=== PATIENT | female | born 2000 | race Two or more races ===

== ENCOUNTER 2024-07-01 22:11 | Emergency (ER) | payer BC, OTHER, SELFPAY ==
[2024-07-01 22:13] VITALS: BMI 27.4
[2024-07-01 22:58] VITALS: BP 131/89; PULSE 76; RESP 18; TEMP 36.6; O2SAT 98
[2024-07-01] MEDS: DEXAMETHASONE SOD PHOS INJ 10 MG/ML VIAL PO (23:44)
--- NOTE | 2024-07-02 05:01 | EDNOTE_ITS ---
ED Allergic Reaction RME/HPI General Chief complaint: Flu Like Symptoms Stated complaint: POSS ALERGIC REACTION AFTER GETTING LASHES DONE Time Seen by Provider: 07/01/24 23:34 Arrival date/time: 07/01/24 22:11 23F with no significant PMH presents to ED with itchy rash on skin and some SOB after getting lash extensions put on. Patient took some Benadryl and symptoms mostly gone prior to arrival in ED. Limitations: no limitations Related Data Allergies Allergy/AdvReac Type Severity Reaction Status Date / Time ibuprofen Allergy Mild Anaphylaxis Verified 07/01/24 22:16 Review of Systems Review of Systems Systems Reviewed: All systems reviewed, normal except as documented Constitutional Constitutional: Reports system reviewed and no additional complaints, except as documented, Denies fever(s) and Denies headache(s) ENT Ears, Nose, Mouth, and Throat: Denies disequilibrium and Denies headache(s) Cardiovascular Cardiovascular: Reports system reviewed and no additional complaints, except as documented, Denies chest pain and Reports dyspnea Respiratory Respiratory: Reports system reviewed and no additional complaints, except as documented, Reports as per HPI, Denies cough and Reports dyspnea Gastrointestinal Gastrointestinal: Reports system reviewed and no additional complaints, except as documented, Denies abdominal pain, Denies nausea and Denies vomiting Integumentary/Breasts Skin/Breast: Reports as per HPI, Reports pruritus and Reports rash Neurologic Neurologic: Reports system reviewed and no additional complaints, except as documented, Denies confusion, Denies disequilibrium and Denies headache(s) Psychiatric Psychiatric: Denies confusion Past Medical History Social History SMOKING STATUS: Never smoker ED Exam General Limitations: Present no limitations General appearance: Present alert and in no apparent distress Head Head exam: Present atraumatic Eye Eye exam: Present normal appearance, PERRL and EOMI ENT ENT exam: Present normal exam, normal oropharynx and mucous membranes moist Neck Neck exam: Present normal inspection, full ROM and trachea midline Chest Chest inspection: Present normal inspection and symmetric chest wall rise Respiratory Respiratory exam: Present normal lung sounds bilaterally Cardiovascular Cardiovascular exam: Present regular rate, normal rhythm and normal heart sounds Abdominal Exam Abdominal exam: Present soft and normal bowel sounds Extremities Exam Extremities exam: Present normal inspection and full ROM Back Exam Back exam: Present normal inspection and full ROM Neurological Exam Neurological exam: Present alert, oriented X3 and CN II-XII intact Psychiatric Psychiatric exam: Present normal affect and normal mood Skin Skin exam: Present warm, dry, intact and normal color Course Quality Measures none Orders Category Date Time Status Dexamethasone Inj [Decadron Inj] Med 07/01/24 23:35 Discontinued 10 mg PO X1 ONE Vital Signs Vital signs: Vital Signs Temperature 97.9 F 07/01/24 22:58 Pulse Rate 76 07/01/24 22:58 Respiratory Rate 18 07/01/24 22:58 Blood Pressure 131/89 H 07/01/24 22:58 Pulse Oximetry (%) 98 07/01/24 22:58 Oxygen Delivery Method Room Air 07/01/24 22:58 O2 at 98% on RA and WNLs Allergic Reaction MDM Narrative MDM Narrative:: 23F with no significant PMH presents to ED with itchy rash on skin and some SOB after getting lash extensions put on. Patient took some Benadryl and symptoms mostly gone prior to arrival in ED. Physical exam reveals no obvious rash on skin. Clear ENT and lungs. Normal WOB. Patient is afebrile, calm, and alert. Will give single dose of steroids to help prevent reoccurence. Patient data External records reviewed:: None Clinical information provided by:: patient Social determinants that could affect healthcare access:: none Patient has the following chronic illnesses:: none How is presenting disease/condition affected by chronic disease/condition?: no chronic disease Evaluation data The following diagnostics were reviewed and interpreted by me:: other (specify) (none) Lab and/or radiology exams considered but not ordered:: not ordered Interpretation Summary: n/a Medications / Prescriptions Medications or Prescriptions considered but not ordered:: ordered Medication administrations:: Medication Administration History Discontinued Medications Dexamethasone Sodium Phosphate (Dexamethasone Sod Phos Inj 10 Mg/Ml Vial) 10 mg PO X1 ONE Stop: 07/01/24 23:36 Last Admin: 07/01/24 23:44 Dose: 10 mg Documented By: above Consultations Consultation(s) initiated? (list below): No Diagnosis Differential Diagnosis allergic reaction: anaphylaxis, allergic reaction, angioedema, contact dermatitis, adverse reaction to drug, viral enanthem and urticaria Most likely diagnosis given after review of the tests above:: allergic reaction Admission Indicated Admission indicated?: not indicated Admission Request Was there a request for admission?: No Disposition Plan Disposition Plan: Discharge Discharge Attestation Discharge Attestation: The patient and all family members were given an opportunity to ask questions and understood the discharge instructions. Discharge instructions specifically effects, indications for sooner follow up or return to the emergency department, and the expected course of current diagnosis. Patient condition: Stable Discharge Plan Plan Patient Disposition: HOME (Self Care) Disposition Comment: Stable Problem List Clinical Impression: Allergic reaction Patient/Caregiver Discharge Instructions Additional Instructions: Please follow-up with PCP within 24-48 hours and return immediately if symptoms worsen. Take OTC antihistamine as needed until symptoms resolve. Finish entire steroid course. Print Language: Mohawk Stand Alone Forms: Patient Portal Info Letter KHUSHBU/JYOTI Supervising Physician KHUSHBU/JYOTI Supervising Physician: Dr. Weaver
== END 2024-07-01 23:55 | disposition home or self-care (01) ==
LOC: SERX 07-02 00:03
PROVIDERS: Emergency Provider Emergency Medicine
DX: T78.40XA Allergy, unspecified, initial encounter (principal); R21 Rash and other nonspecific skin eruption
CPT/HCPCS: 99282; J1100